=== PATIENT | male | born 1975 | race Hispanic/Latino ===

== ENCOUNTER 2019-08-12 08:03 | Day surgery (SDC) | payer MEDICAID ==
[~2019-08-12] VITALS: Ht 165.1 cm; Wt 72.6 kg
[~2019-08-12 08:03] MED LIST: SODIUM CHLORIDE 0.9% 1000ML 1,000 ML IV ONE
[2019-08-12 09:44] VITALS: BP 124/86
[2019-08-12] MEDS ORDERED: IBUP-2784 PO (09:51)
[2019-08-12] MEDS ORDERED: PROPOFOL 10 MG/ML 20ML VIAL IV ONE ×2 (10:09)
[2019-08-12] MEDS ORDERED: FENTANYL CITRATE PF 50 MCG/1 ML 2ML VIAL ONE (10:10)
[2019-08-12 10:22] VITALS: BP 100/64
[2019-08-12 10:27] VITALS: BP 116/49
[2019-08-12 10:33] VITALS: BP 117/56
[2019-08-12 10:40] VITALS: BP 120/71
[2019-08-12 10:50] VITALS: BP 117/62
== END 2019-08-12 10:52 | disposition home or self-care (01) ==
LOC: ENDO 08:03 → DAH 08:03 → ENDO 10:52
PROVIDERS: ATTEND Internal Medicine Gastroenterology
DX: K29.50 Unspecified chronic gastritis without bleeding (principal); K31.89 Other diseases of stomach and duodenum; K22.8 Other specified diseases of esophagus; E78.5 Hyperlipidemia, unspecified; Z86.010 Personal history of colon polyps
CPT/HCPCS: 43239; 88305; A4215; A4221; A4222; A4223; A4606; A4620; A4663; J2704 ×2; J3010; J7030